=== PATIENT | male | born 1990 | race Caucasian/White ===

== ENCOUNTER 2020-06-23 19:13 | Emergency (ER) | payer OTHER ==
[~2020-06-23] VITALS: Ht 188 cm; Wt 79.1 kg
[2020-06-23] MEDS ORDERED: NALOXONE HCL 1 MG/ML 2 ML SYG IVP ONE (19:30)
[2020-06-23 21:26] VITALS: BP 118/65
== END 2020-06-23 21:28 | disposition home or self-care (01) ==
LOC: EDBD 19:13 → EMS 19:13
DX: T40.411A Poisoning by fentanyl or fentanyl analogs, accidental (unintentional), initial encounter (principal); F17.210 Nicotine dependence, cigarettes, uncomplicated; F12.90 Cannabis use, unspecified, uncomplicated; F11.90 Opioid use, unspecified, uncomplicated; Y92.89 Other specified places as the place of occurrence of the external cause
CPT/HCPCS: 96374; Z7502